=== PATIENT | male | born 1985 | race Caucasian/White ===

== ENCOUNTER → 2023-05-13 | Outpatient (CLI) | payer OTHER, SELFPAY ==
--- NOTE | 2023-05-14 02:41 | DI.NM.S_ITS ---
DATE OF SERVICE: 05/13/2023 PROCEDURE: Exercise stress test. INDICATIONS: Palpitation and chest pain. CARDIAC STRESS: The patient underwent exercise stress test under the supervision of an attending staff. He walked on Martin protocol for 12 minutes and 30 seconds, achieved maximum heart rate of 184 which was 101% of target heart rate. Normal blood pressure response. Peak blood pressure 135/60. 12.8 METs of workload. MONICA positive 2%. Baseline rhythm was sinus with slight concave type diffuse ST elevation, likely repolarization changes. During stress, there was some nonspecific upsloping ST depression in inferolateral leads without any typical ischemic changes. No significant arrhythmias. No chest pain or anginal symptoms. CONCLUSION: Exercise stress test is negative for inducible ischemia. Baseline repolarization changes. No significant arrhythmias. Walked on Martin protocol for 12 minutes and 31 seconds. Normal blood pressure and heart rate response. Achieved 12.8 METs of workload. No chest pain or significant arrhythmias, however, late recovery. Heart rate was 110 at 5 minutes in recovery. Correlate clinically. Overall low-risk exercise stress test. Benito Aceves - SHANTELLE/sam/andrew doc#: [id number]/job#: [id number] dd: 05/13/2023 17:28:00 dt: 05/14/2023 02:35:00 DICTATING /COPIES TO: Missy Johnson MD COPIES MNE: JAMAL;
== END ==
LOC: RAD 07:23
PROVIDERS: Referring Provider Internal Medicine Cardiovascular Disease; Visit Provider Internal Medicine Cardiovascular Disease
DX: R07.9 Chest pain, unspecified (principal); R00.2 Palpitations
CPT/HCPCS: 93017